=== PATIENT | male | born 2000 | race Caucasian/White ===

== ENCOUNTER 2022-02-23 04:25 | Observation (INO) ==
[2022-02-23] MEDS ORDERED: ONDANSETRON INJ 2 MG/ML 2 ML VIAL IV STA (04:49)
[2022-02-23] MEDS ORDERED: SODIUM CHLORIDE 0.9% 1000ML 1,000 ML IV STA (04:49)
[2022-02-23] MEDS: MoRPHine SULFATE 4 MG/ML 1 ML CARP\\VIAL IV PRN ×3 (05:13→08:04)
[2022-02-23 05:40] LABS: Basophils # (auto) 0.03 K/uL (0-0.2); Basophils % (auto) 0.2 %; Eosinophils # (auto) 0.06 K/uL (0-0.50); Eosinophils % (auto) 0.5 %; Hematocrit (blood only) 43.8 % (40.1-51.0); Hemoglobin 15.4 g/dl (14.0-18.0); Immature Granulocytes # (auto) 0.03 K/uL (0.00-0.02); Immature Granulocytes % (auto) 0.2 %; Lymphocytes # (auto) 1.05 K/uL (1.2-3.4); Lymphocytes % (auto) 8.2 %; Mean Corpuscular Hemoglobin 31.4 pg (25.0-34.0); Mean Corpuscular Hgb Conc 35.2 g/dL (32.0-36.0); Mean Corpuscular Volume 89.2 fL (80.0-100.0); Mean Platelet Volume 9.3 fL (9.4-12.4); Monocytes # (auto) 0.72 K/uL (0.24-0.82); Monocytes % (auto) 5.6 %; Neutrophils # (auto) 10.96 K/uL (1.4-6.5); Neutrophils % (auto) 85.3 %; Platelet Count 264 K/uL (130-400); RDW Coefficient of Variation 12.3 % (11.5-14.5); RDW Standard Deviation 40.6 fL (36.4-46.3); Red Blood Count 4.91 M/uL (4.63-6.08); White Blood Count 12.85 K/ul (4.8-10.8)
[2022-02-23 06:05] LABS: Albumin Globulin Ratio 1.4 (0.9-2); Albumin Level 4.5 gm/dl (3.4-5.0); BUN Creatinine Ratio 20.3 (10-20); Bilirubin,Total 0.8 mg/dl (0.2-1.0); Calcium 9.5 mg/dl (8.5-10.1); Est GFR (African American) 147.7 ml/min; Est GFR (Non-African American) 127.5 ml/min; Globulin 3.2 gm/dl (2.5-4.0); Potassium 3.9 mmol/L (3.5-5.1); Total Protein 7.7 gm/dl (6.0-8.3)
--- NOTE | 2022-02-23 07:16 | Emergency Department Note ---
History of Present Illness General Chief complaint: Abdominal Pain Stated complaint: ABD PAINS Time Seen by Provider: 02/23/22 04:38 History of Present Illness Maximum Pain Intensity: 4 This is a 21-year-old male presenting to the emergency department for evaluation of right-sided abdominal pain worsening over the past 8 hours. The patient has not had fevers or chills. He does have some decreased appetite. The pain is initially reported to be around his bellybutton but does now seem to be more right-sided. The patient is usually healthy and has not taken anything [id number] for symptoms. He does feel somewhat constipated which is atypical for him. The pain is rated a 4/10. Past Med/Surg History Medical History No pertinent past medical history Surgical History No significant past surgical history Social History Smoking Status: Never smoker Preferred Language: Armenian Feels Safe at Home: Yes Review of Systems A total of 10 systems reviewed and were otherwise negative Physical Exam Vital Signs Vital Signs - 24 hr 02/23/22 04:30 02/23/22 05:22 02/23/22 06:20 Temperature 36.8 C Temperature Source Temporal Artery Scan Pulse Rate 75 Pulse Rate [Apical] 63 Respiratory Rate 16 20 Respiratory Effort / Characteristics Non-Labored Spontaneous Respiratory Depth Normal Respiratory Pattern Regular Blood Pressure 148/89 H Blood Pressure [Right Arm] 137/85 Blood Pressure Mean 108 Blood Pressure Mean [Right Arm] 102 Pulse Oximetry 97 98 98 Oxygen Delivery Method Room Air Room Air Room Air Sepsis Recent Fever Within 48 Hours No Sepsis New/Unexplained Change in Mental Status No Sepsis Action Taken by Nursing No Action Required VITALS: Vitals are noted on the nurse's note and reviewed by myself. Vital signs stable. GENERAL: Well-developed, well-nourished, white male, who is in no acute distress and resting comfortably. Patient is cooperative with the examination. HEAD: Normocephalic atraumatic. HEART: Regular rate and rhythm without murmurs gallops or rubs. LUNGS: Clear to auscultation bilaterally without wheezes, rales or rhonchi. No retractions or accessory muscle use. ABDOMEN: Positive normal bowel sounds x 4. Soft with mild tenderness to the right side of the umbilicus. No rebound or guarding. No CVA tenderness. MUSCULOSKELETAL: No muscle atrophy, erythema, or edema noted. Full range of motion in all extremities. Course Administered Medications Morphine Sulfate (Morphine Sulfate 4 Mg/Ml 1 Ml Carp\Vial) 4 mg IV Q15M PRN PRN Reason: Pain Stop: 03/09/22 04:48 Last Admin: 02/23/22 05:48 Dose: 4 mg Documented By: Admin: 02/23/22 05:13 Dose: 4 mg Documented By: OLU Discontinued Medications Sodium Chloride (Nss 1000ml) 1,000 mls @ 999 mls/hr IV .Q1H1M STA Stop: 02/23/22 05:49 Last Infusion: 02/23/22 06:13 Dose: 0 mls/hr Documented By: Admin: 02/23/22 05:13 Dose: 999 mls/hr Documented By: OLU Ondansetron HCl (Ondansetron Inj 2 Mg/Ml 2 Ml Vial) 4 mg IV NOW STA Stop: 02/23/22 04:50 Last Admin: 02/23/22 05:13 Dose: 4 mg Documented By: OLU Medical Decision Making Differential Diagnosis Differential diagnosis: Etiologies such as biliary colic, cholecystitis, hepatitis, pancreatitis, cardiac disease, pancreatitis, gastritis, peptic ulcer disease, appendicitis, cystitis, diverticulitis, mesenteric ischemia, inflammatory bowel disease, ileus, bowel obstruction, testicular/adnexal torsion, aortic pathology, shingles, as well as others were considered Laboratory Data Result diagrams: 02/23/22 05:17 02/23/22 05:17 Lab Results 02/23/22 02/23/22 02/23/22 Range/Units 05:17 05:17 05:30 WBC 12.85 H (4.8-10.8) K/ul RBC 4.91 (4.63-6.08) M/uL Hgb 15.4 (14.0-18.0) g/dl Hct 43.8 (40.1-51.0) % MCV 89.2 (80.0-100.0) fL MCH 31.4 (25.0-34.0) pg MCHC 35.2 (32.0-36.0) g/dL RDW Std Deviation 40.6 (36.4-46.3) fL RDW Coeff of Lynn 12.3 (11.5-14.5) % Plt Count 264 (130-400) K/uL MPV 9.3 L (9.4-12.4) fL Immature Gran % (Auto) 0.2 % Neut % (Auto) 85.3 % Lymph % (Auto) 8.2 % [place] % (Auto) 5.6 % Eos % (Auto) 0.5 % Baso % (Auto) 0.2 % Neut # (Auto) 10.96 H (1.4-6.5) K/uL Lymph # (Auto) 1.05 L (1.2-3.4) K/uL [place] # (Auto) 0.72 (0.24-0.82) K/uL Eos # (Auto) 0.06 (0-0.50) K/uL Baso # (Auto) 0.03 (0-0.2) K/uL Immature Gran # (Auto) 0.03 H (0.00-0.02) K/uL Sodium 135 L (136-145) mmol/L Potassium 3.9 (3.5-5.1) mmol/L Chloride 100 (98-107) mmol/L Carbon Dioxide 27 (21-32) mmol/L Anion Gap 8 (3-11) BUN 16 (6-23) mg/dl Creatinine 0.79 (0.6-1.4) mg/dl Est Cr Clr Drug Dosing 161.0 ml/min Est GFR ( Amer) 147.7 ml/min Est GFR (Non-Af Amer) 127.5 ml/min BUN/Creatinine Ratio 20.3 H (10-20) Glucose 93 (70-99(Fasting)) mg/dl Calcium 9.5 (8.5-10.1) mg/dl Total Bilirubin 0.8 (0.2-1.0) mg/dl AST 16 (13-39) U/L ALT 15 (7-52) U/L Alkaline Phosphatase 51 (34-104) U/L Total Protein 7.7 (6.0-8.3) gm/dl Albumin 4.5 (3.4-5.0) gm/dl Globulin 3.2 (2.5-4.0) gm/dl Albumin/Globulin Ratio 1.4 (0.9-2) Lipase 17 (11-82) U/L SARS-CoV-2, RNA, NAAT NEGATIVE (NEGATIVE) MDM Narrative Physical exam and history were performed. Nursing notes, EMR, and Medication List were personally reviewed. Patient appears to have abdominal pain bringing him to the ER. Symptoms have been ongoing since about 8 PM yesterday. On evaluation he does have discomfort on the right side abdomen. IV access was established and labs were obtained. He was hydrated with saline and given IV morphine and IV Zofran for comfort. CT scan with IV and oral contrast was performed. Patient's blood work is as above and was reviewed. He does have a slightly elevated white count of 12.8. He does not have significant anemia, bandemia, or gross electrolyte imbalance. Lipase and transaminases are not diagnostic. Patient remained in stable condition until the time of shift change. The case was discussed with my colleague, Libertad Chavez PA-C, who will assume care at this time. The patient is pending contrast CT scan. Please see MsTimothy Kathy's dictation for further patient course, plan, and disposition. The chart was completed utilizing [employer] Voice Recognition Software. Grammatical errors, random word insertions, pronoun errors, and incomplete sentences are an occasional consequence of this system due to software limitations, ambient noise, and hardware issues. Any formal questions or concerns about the content, text, or information contained within the body of this dictation should be directly addressed to the provider for clarification. . Impression & Plan Right sided abdominal pain Discharge Plan Visit Data Chief Complaint: Abdominal Pain Stated Complaint: ABD PAINS ED Provider: Violeta Erazo ED Midlevel Provider: Camilo Summers Discharge Problem: Right sided abdominal pain Patient Disposition: Still a Patient Forms Stand Alone Forms: [facility] Referrals Referrals: [facility] [Primary Care Provider] -
[2022-02-23] MEDS ORDERED: OPTIRAY 350 100ml IV ONE (07:31)
--- NOTE | 2022-02-23 07:35 | Emergency Department Note ---
ED Visit Note ED NOTE: Received this patient in signout from Camilo Summers PA-C, at change of shift. Please refer to his dictation for the complete history, physical exam and ED course at this point. Briefly patient is a healthy 21-year-old male who presents emergency department for evaluation of right-sided abdominal pain. Symptoms started overnight and worsened. At change of shift, CT scan of the abdomen pelvis with IV/PO contrast was pending. CT scan findings are concerning for mild acute appendicitis. The appendix is dilated and fluid-filled measuring up to 8 mm with appendiceal wall thickening and hyperemia with some mild surrounding inflammation. No fluid collection is seen to suspect abscess. CT scan findings were discussed with the patient. Consultation was placed with general surgery. The patient was reminded to remain NPO. He did ask for something additional for pain, and was given morphine 4 mg IV. Patient was discussed with Aline Sahu PA-C with general surgery. He will go to the OR later today.
--- NOTE | 2022-02-23 07:42 | CT Scan Report ---
CT SCAN OF THE ABDOMEN AND PELVIS WITH IV CONTRAST CLINICAL HISTORY: Right lower quadrant abdominal pain. COMPARISON STUDY: No priors. TECHNIQUE: Following the IV administration of 82 cc of Optiray 350, CT scan of the abdomen and pelvi s is performed from the lung bases to the proximal femora. Images are reviewed in the axial, sagittal , and coronal planes. IV contrast was administered without complication. Oral contrast was utilized. A dose lowering technique was utilized adhering to the principles of ALARA. CT DOSE: 313.12 mGy.cm FINDINGS: Lung bases: The heart is normal in size and without pericardial effusion. The lung bases are clear. Liver: The contrast-enhanced liver is normal in size, contour, and attenuation. There is no intrahepa tic biliary ductal dilatation. The hepatic veins and portal veins are patent. Gallbladder: Unremarkable. Spleen: The spleen is mildly enlarged measuring 14.1 cm in length. Pancreas: Unremarkable. Adrenal glands: Unremarkable. Kidneys: The contrast enhanced kidneys are normal in size and without hydronephrosis. The kidneys enh ance symmetrically. Abdominal vasculature: The abdominal aorta is normal in course and caliber. Bowel: There is mild to moderate colonic fecal retention. No bowel obstruction is seen. Enteric contr ast reaches the distal small bowel. The appendix is dilated and fluid-filled, measuring up to 8 mm i n diameter. This is best seen on image #355. The appendiceal wall is thickened and hyperemic and ther e is mild surrounding inflammation. The appearance is consistent with acute appendicitis. No fluid co llection is seen suggest abscess. Peritoneum: There is no intraperitoneal free air or abdominal ascites. Lymphadenopathy: None. Pelvic viscera: The bladder, prostate, and seminal vesicles are normal as visualized. Skeletal structures: No lytic or blastic lesions are seen. IMPRESSION: 1. Mild acute appendicitis. 2. There is no evidence of abscess or perforation. 3. Mild splenomegaly. ACT 112: Negative or not required by law. Electronically signed by: Akshat Berger M.D. 02/23/2022 7:41 AM
[2022-02-23 07:45] LABS: Appearance Urine Cloudy (Clear); Bacteria Urine Automated Negative (Negative); Bilirubin Urine Negative (Negative); Blood Urine Negative (Negative); Cast Urine Automated 0 /lpf (0-5); Color Urine Yellow; Epithelial Cell Urine Auto 0-5 /lpf (0-5); Glucose Urine UA Negative (Negative); Ketones Urine Trace (Negative); Leukocyte Esterase Urine Negative (Negative); Nitrite Urine Negative (Negative); Protein Urine Negative (Negative); RBC Urine Automated 0-4 /hpf (0-4); Specific Gravity Urine 1.019 (1.000-1.030); Urobilinogen Urine Negative (Negative); WBC Urine Automated 0 /hpf (0-5); pH Urine 8.5 (4.5-7.5)
--- NOTE | 2022-02-23 08:10 | History & Physical Report ---
Date of Service February 23, 2022 Assessment & Plan (1) Acute appendicitis: Plan: This is a 21yM with no PMH who presents to the [facility] ED on 02/23/22 with complaints of right lower quadrant abdominal pain that started yesterday night. In the ER a CT a/p was obtained that revealed findings of acute appendicitis. No past surgical history. WBC 12.8. Vitals are stable. On exam patient's abdomen is soft and ttp in the RLQ. Will book for lap appendectomy today. Keep NPO with IVF and IVF abx. Dr. Charles will be by to obtain consent. as above. exam/hx c/w acute appendicitis. discussed options/risks ( bleeding/infection/injury to another organ/blood clots etc....). Questions answered. He is agreeable. will proceed with lap appendectomy andrew. History of Present Illness Primary Care Provider: [facility] This is a 21yM with no PMH who presents to the [facility] ED on 02/23/22 with complaints of right lower quadrant abdominal pain. Patient says the pain started around 8pm last night. He went to bed around 1030, but woke up at midnight having 10/10 pain. He could not get comfortable over 4 hours time and he came into the ER for further evaluation. He reports two short lived episodes like this in the past, around december that were self limited and he thought related to constipation. No N/v, but did self induce vomiting to see if that would make him feel better. In the ER a CT a/p was obtained that revealed findings of acute appendicitis. No past surgical history. Has been NPO since midnight. Allergies Allergy/AdvReac Type Severity Reaction Status Date / Time No Known Allergies Allergy Verified 02/23/22 07:56 Past Med/Surg History Medical History (Updated 02/23/22 @ 10:42 by Daja Talley RN) Hx of fracture jaw fracture from lacrosse accident (May 2018) with surgical repair Hx of infectious mononucleosis with subsequent myocarditis Hx of myocarditis 2018 Social History Smoking Status: Never smoker Preferred Language: Filipino Feels Safe at Home: Yes Review of Systems Constitutional: no fever and no chills Respiratory: no dyspnea Gastrointestinal: + abdominal pain (RLQ), + bloating and + constipation; no nausea and no vomiting Physical Exam Physical Exam: awake/alert, no distress Respiratory: normal respiratory effort Gastrointestinal (Abdomen): Inspection/Auscultation: abdomen not distended Percussion/Palpation: + abdomen tender (ttp in RLQ; + rosvings) and abdomen soft Results & Data Results & Data ([facility]) Vital Signs (Past 12 Hours) Vital Signs Temp Pulse Pulse Resp BP BP Pulse Ox 02/23/22 06:20 63 20 137/85 98 02/23/22 05:22 98 02/23/22 04:30 36.8 C 75 16 148/89 H 97 O2 Del Method 02/23/22 06:20 Room Air 02/23/22 05:22 Room Air 02/23/22 04:30 Room Air Diagnostic Findings CT SCAN OF THE ABDOMEN AND PELVIS WITH IV CONTRAST CLINICAL HISTORY: Right lower quadrant abdominal pain. COMPARISON STUDY: No priors. TECHNIQUE: Following the IV administration of 82 cc of Optiray 350, CT scan of the abdomen and pelvis is performed from the lung bases to the proximal femora. Images are reviewed in the axial, sagittal, and coronal planes. IV contrast was administered without complication. Oral contrast was utilized. A dose lowering technique was utilized adhering to the principles of ALARA. CT DOSE: 313.12 mGy.cm FINDINGS: Lung bases: The heart is normal in size and without pericardial effusion. The lung bases are clear. Liver: The contrast-enhanced liver is normal in size, contour, and attenuation. There is no intrahepatic biliary ductal dilatation. The hepatic veins and portal veins are patent. Gallbladder: Unremarkable. Spleen: The spleen is mildly enlarged measuring 14.1 cm in length. Pancreas: Unremarkable. Adrenal glands: Unremarkable. Kidneys: The contrast enhanced kidneys are normal in size and without hydronephrosis. The kidneys enhance symmetrically. Abdominal vasculature: The abdominal aorta is normal in course and caliber. Bowel: There is mild to moderate colonic fecal retention. No bowel obstruction is seen. Enteric contrast reaches the distal small bowel. The appendix is dilated and fluid-filled, measuring up to 8 mm in diameter. This is best seen on image #355. The appendiceal wall is thickened and hyperemic and there is mild surrounding inflammation. The appearance is consistent with acute appendicitis. No fluid collection is seen suggest abscess. Peritoneum: There is no intraperitoneal free air or abdominal ascites. Lymphadenopathy: None. Pelvic viscera: The bladder, prostate, and seminal vesicles are normal as visualized. Skeletal structures: No lytic or blastic lesions are seen. IMPRESSION: 1. Mild acute appendicitis. 2. There is no evidence of abscess or perforation. 3. Mild splenomegaly. ACT 112: Negative or not required by law. Electronically signed by: Akshat Berger M.D. 02/23/2022 7:41 AM PG Care Time/CCT Total # of Minutes Spent Total Time Spent with Patient: Total time spent is greater than 50% in coordination of care (as documented) at patient's floor/unit and/or counseling patient: Coding Level of Care Code 59364 Initial Inpt Care Lvl 2 Diagnoses Acute appendicitis K35.80
[2022-02-23] MEDS ORDERED: PIPERACILLIN/TAZOBACTAM 3.375 GM in DEXTROSE 5% 100 ML/100 ML BAG IV STA (08:31)
--- NOTE | 2022-02-23 09:28 | Anesthesiology Consultation ---
Date of Service February 23, 2022 Assessment & Plan (1) Encounter for pre-operative examination: Chart Review Chart Review: customs entry writer initiated History Surgery Operation Date: 02/23/22 08:50 Proposed Procedures p Laparoscopic Appendectomy - Willy Charles DO Height/Weight Height: 6 ft Weight: 78.7 kg Allergies Allergy/AdvReac Type Severity Reaction Status Date / Time No Known Allergies Allergy Verified 02/23/22 07:56 Medications Active Medications Generic Name Dose Route Start Last Admin Trade Name Freq PRN Reason Stop Dose Admin Morphine Sulfate 4 mg 02/23/22 04:49 02/23/22 08:04 Morphine Sulfate 4 Mg/Ml 1 Ml Carp\Vial IV 03/09/22 04:48 4 mg Q15M PRN Administration Pain Past Medical History Medical History No pertinent past medical history Past Surgical History Surgical History No significant past surgical history Social History Smoking Status: Never smoker Physical Exam Vital Signs Last Vital Signs Temp 98.2 F 02/23/22 04:30 Pulse 63 02/23/22 06:20 Resp 20 02/23/22 06:20 BP 137/85 02/23/22 06:20 Pulse Ox 98 02/23/22 06:20 O2 Del Method 02/23/22 06:20 Testing Laboratory Results 02/23/22 05:17 02/23/22 05:17 Urine Color Yellow 02/23/22 05:17 Urine Appearance Cloudy (Clear) A 02/23/22 05:17 Urine pH 8.5 (4.5-7.5) H 02/23/22 05:17 Ur Specific [place] 1.019 (1.000-1.030) 02/23/22 05:17 Urine Protein Negative (Negative) 02/23/22 05:17 Urine Glucose (UA) Negative (Negative) 02/23/22 05:17 Urine Ketones Trace (Negative) H 02/23/22 05:17 Urine Nitrite Negative (Negative) 02/23/22 05:17 Ur Leukocyte Esterase Negative (Negative) 02/23/22 05:17 Urine WBC (Auto) 0 /hpf (0-5) 02/23/22 05:17 Urine RBC (Auto) 0-4 /hpf (0-4) 02/23/22 05:17 U Hyaline Cast (Auto) 0 /lpf (0-5) 02/23/22 05:17 U Epithel Cells (Auto) 0-5 /lpf (0-5) 02/23/22 05:17 Urine Bacteria (Auto) Negative (Negative) 02/23/22 05:17
[2022-02-23] MEDS ORDERED: DEXAMETHASONE SOD INJ 4 MG/ML VIAL ONE (10:22)
[2022-02-23] MEDS ORDERED: PROPOFOL IV EMULSION 10 MG/ML 20 ML VIAL IV ONE (10:22)
[2022-02-23] MEDS ORDERED: ONDANSETRON INJ 2 MG/ML 2 ML VIAL ONE (10:22)
[2022-02-23] MEDS ORDERED: ROCURONIUM BROMIDE 10 MG/ML 5 ML VIAL IV ONE (10:22)
[2022-02-23] MEDS ORDERED: fentaNYL citrate 100 MCG/2 ML VIAL ONE (10:22)
[2022-02-23] MEDS ORDERED: MIDAZOLAM HCL 1 MG/ML 2ML VIAL ONE (10:22)
[2022-02-23] MEDS ORDERED: LIDOCAINE 2% MPF LOCAL 5 ML VIAL INFIL ONE (10:22)
[2022-02-23] MEDS ORDERED: KETOROLAC 30 MG/ML VIAL ONE (10:22)
[2022-02-23] MEDS ORDERED: BUPIVACAINE/EPINEPHRINE 0.5% MPF 1:200,000 10 ML VIAL ONE (10:50)
[2022-02-23] MEDS ORDERED: NALOXONE HCL 0.4 MG/1 ML VIAL/CARP IV PRN (10:59)
[2022-02-23] MEDS ORDERED: ePHEDrine sulfate 50 MG/ML AMP IV PRN (10:59)
[2022-02-23] MEDS ORDERED: PROMETHAZINE HCL 12.5 MG in SODIUM CHLORIDE 0.9% 50 ML IV PRN (10:59)
[2022-02-23] MEDS ORDERED: ATROPINE SULFATE 0.1 MG/ML 10ML SYR IV PRN (10:59)
[2022-02-23] MEDS ORDERED: FLUMAZENIL 0.1 MG/1 ML 10 ML VIAL IV PRN (10:59)
[2022-02-23] MEDS ORDERED: ONDANSETRON INJ 2 MG/ML 2 ML VIAL IV PRN ×2 (10:59→13:05)
[2022-02-23] MEDS: fentaNYL citrate 100 MCG/2 ML VIAL IV PRN ×4 (12:23→12:38)
[2022-02-23] MEDS: HYDROmorphone INJ 1 MG/ML SYRINGE IV PRN ×2 (12:43→12:48)
[2022-02-23] MEDS ORDERED: oxyCODONE/ACETAMINOPHEN 5mg/325mg TAB PO PRN ×2 (13:05)
--- NOTE | 2022-02-23 13:06 | Anesthesiology Progress Note ---
Date of Service February 23, 2022 Anesthesia Post Procedure Vital Signs Vital Signs: Temp Pulse Pulse Pulse Resp BP BP 02/23/22 13:00 36.6 C 53 L 16 124/56 L 02/23/22 12:50 59 L 17 117/67 02/23/22 12:40 61 16 127/64 02/23/22 12:20 56 L 18 119/66 02/23/22 12:30 58 L 14 127/68 02/23/22 12:10 56 L 11 L 132/72 02/23/22 12:02 36.4 C L 81 22 133/78 02/23/22 10:28 36.9 C 66 18 132/62 02/23/22 08:00 64 18 117/73 02/23/22 06:20 63 20 137/85 02/23/22 05:22 02/23/22 04:30 36.8 C 75 16 148/89 H Pulse Ox O2 Del Method 02/23/22 13:00 93 Room Air 02/23/22 12:50 92 Room Air 02/23/22 12:40 95 Room Air 02/23/22 12:20 99 Room Air 02/23/22 12:30 93 Room Air 02/23/22 12:10 95 Room Air 02/23/22 12:02 100 Room Air 02/23/22 10:28 95 Room Air 02/23/22 08:00 95 Room Air 02/23/22 06:20 98 Room Air 02/23/22 05:22 98 Room Air 02/23/22 04:30 97 Room Air Pain Intensity Right Abdomen: Pain Intensity: 3 Abdomen: Pain Intensity: 3 Transfer of Care Handoff Completed per policy Notes Mental Status: alert / awake / arousable Patient Amnestic to Procedure: Yes Nausea / Vomiting: adequately controlled Pain: adequately controlled Airway Patency, RR, SpO2: stable & adequate BP & HR: stable & adequate Hydration State: stable & adequate Anesthetic Complications: no major complications apparent
--- NOTE | 2022-02-23 14:02 | Operative Report ---
PG Post Operative Report Pre & Post Diagnosis Operation Date: 02/23/22 08:50 Pre-Op Diagnosis: Acute Appendicitis Post-Op Diagnosis: Acute Appendicitis I identified the patient and participated in the time-out.: Yes Procedure Operation Date: 02/23/22 08:50 Actual Procedures p Laparoscopic Appendectomy(Not Applicable) - Willy Charles DO Surgeon Willy Charles DO Chilling Hood Operator n/a Estimated Blood Loss 5 Findings Consistent with Post-Op Diagnosis Specimens appendix Description of Procedure After informed consent was obtained the patient was taken to the operating room and placed in supine position. After successful intubation a Bethea catheter was placed and the left arm was tucked. A Bethea catheter was inserted sterilely. I began by making a periumbilical incision with an 11 blade scalpel and carried this down through the soft tissue using electrocautery. The anterior rectus fascia was opened using electrocautery and 2 #0 Vicryl stay sutures were placed. The peritoneum was elevated using hemostats and incised under direct vision using a Metzenbaum scissor. A finger sweep was performed. A 12 mm Martinez troc ar was placed and the abdomen was insufflated to 18 mmHg. A laparoscope was inserted and the abdomen was examined in 360. A suprapubic 5 mm port and a left lower quadrant 12 mm port were placed under direct vision. The patient was air planed to the left as well as placed in a slight Trendelenburg position. We began by looking in the right lower quadrant. We were able to readily identify the appendix and it was grossly inflamed. It had not perforated. There is a small amount of purulent fluid in the right lower quadrant and the pelvis. We immediately irrigated and suctioned this out. I was able to use primarily blunt dissection to pull the appendix away from the right lower quadrant sidewall. I was then able to use a CAMI brown cartridge stapler to transect both the mesentery of the appendix as well as the appendix itself at its base with the cecum. It was then placed into an Endo Catch bag and removed from the camera port site. We thoroughly irrigated the right lower quadrant as well as the pelvis. There was a small amount of oozing from the staple line I controlled this using a laparoscopic clip railway signal operator. After this, there was adequate hemostasis. I ran the small bowel backwards from the terminal ileum for about 6 feet all of which was normal. All the peritoneal surfaces were normal. Small/ large bowel, liver, stomach etc. all appeared grossly normal. We did a final irrigation and then removed all the trochars and desufflated the abdomen. The fascia of the camera port as well as the left lower quadrant were closed using 0 Vicryl in [id number] fashion. Wounds were all irrigated and closed using 4-0 Monocryl. Marcaine was injected around them for postoperative analgesia and skin glue used as a dressing. The patient was awakened extubated and tra nsferred to recovery in stable condition. I attest to the content of the Intraoperative Record and any orders documented therein. Any exceptions are noted below.
== END 2022-02-23 18:20 | disposition home or self-care (01) ==
LOC: ED 04:25 → 3N 10:20 → OR 10:20